=== PATIENT | male | born 1990 | race Caucasian/White ===

== ENCOUNTER 2019-03-23 08:36 | Emergency (ER) | payer MEDICAID ==
[2019-03-23 08:41] VITALS: BP 128/93; PULSE 82; RESP 16; O2SAT 99
[2019-03-23 08:42] VITALS: BMI 24.5
[2019-03-23 08:57] VITALS: TEMP 99
--- NOTE | 2019-03-23 09:36 | ED PDOC ---
Lower Extremity Pain/Injury Time Seen by Provider: 03/23/19 08:49 Chief Complaint (Nursing): Lower Extremity Problem/Injury Chief Complaint (Provider): Toe fungus History Per: Patient History/Exam Limitations: no limitations Onset/Duration Of Symptoms: Days (3) Additional Complaint(s): Pt. states his left big toe has a fungal infection. The toe nail is partially white colored. No pain, discharge, weakness, numbness, tingles. Is wheelchair bound, but no injury noted. Past Medical History Reviewed: Nursing Documentation, Vital Signs Vital Signs: Last Vital Signs Temp 99.0 F 03/23/19 08:49 Pulse 82 03/23/19 08:49 Resp 16 03/23/19 08:49 BP 128/93 H 03/23/19 08:41 Pulse Ox 99 03/23/19 08:49 Primary Care Provider: Jeremy Kay - Medical History PMH: Denies: CVA - Surgical History Surgical History: Back Surgery - Family History Family History: States: Unknown Family Hx - Home Medications Home Medications: Ambulatory Orders Medication Instructions Recorded Ciprofloxacin/Ciprofloxa HCl 500 mg PO BID #14 tab 05/10/16 [Ciprofloxacin] Ciprofloxacin HCl [Cipro] 500 mg PO BID #14 tablet 06/21/16 Ciclopirox [Penlac] 1 appl TP DAILY 7 Days solution 03/23/19 - Allergies Allergies/Adverse Reactions: Allergies Allergy/AdvReac Type Severity Reaction Status Date / Time No Known Allergies Allergy Verified 06/21/16 01:42 Review of Systems Constitutional: Negative for: Fever, Weakness Cardiovascular: Negative for: Chest Pain Respiratory: Negative for: Shortness of Breath Musculoskeletal: Negative for: Neck Pain, Shoulder Pain, Arm Pain Skin: Positive for: Rash Neurological: Negative for: Weakness, Numbness, Dizziness Physical Exam - Reviewed Nursing Documentation Reviewed: Yes Vital Signs Reviewed: Yes - Physical Exam Neck: Positive for: Normal, Painless ROM Cardiovascular/Chest: Positive for: Regular Rate, Rhythm Respiratory: Positive for: CNT, Normal Breath Sounds Pulses-Dorsalis Pedis (L): 2+ Back: Positive for: Normal Inspection. Negative for: L CVA Tenderness, R CVA Tenderness Extremity: Positive for: Pedal Edema (b/l feet (chronic per pt.) is 1+ b/l), Other (left medial half toe nail of great toe with whitish discoloration, nontender, no toe swelling, no erythema or induration; has full ROM). Negative for: Tenderness, Calf Tenderness Neurological/Psych: Positive for: Awake, Alert, Other (limite ROM of lower extremities in general chronically and is wheel chair bound) - ECG O2 Sat by Pulse Oximetry: 99 Pulse Ox Interpretation: Normal - Progress ED Course And Treament: 948: Stable. AAOx3. Will tx for toe nail fungus. Advised to fu with pcp for note and insurance paperwork to submit for a wheelchair repair. Disposition - Clinical Impression Clinical Impression: Onychomycosis - Patient ED Disposition Is Patient to be Admitted: No Counseled Patient/Family Regarding: Diagnosis, Need For Followup, Rx Given - Disposition Referrals: [facility] [place] [Outside] - 03/27/19 Disposition: Routine/Home Disposition Time: 08:52 Condition: STABLE Additional Instructions: Return if not better in 3 days. Prescriptions: Ciclopirox [Penlac] 1 appl TP DAILY 7 Days solution Instructions: Fungal Nail Infections Forms: [facility] ([place])
== END 2019-03-23 09:58 | disposition home or self-care (01) ==
LOC: H.ER 08:36
DX: B35.1 Tinea unguium (principal)